=== PATIENT | male | born 2000 | race Caucasian/White ===

== ENCOUNTER 2023-01-28 19:48 | Emergency (ER) | payer MEDICAID ==
[~2023-01-28 19:48] MED LIST: ARIP2TAB3 PO
[2023-01-28] MEDS ORDERED: LORAZEPAM 0.5MG TABLET PO ONE (20:00)
== END 2023-01-28 20:56 | disposition home or self-care (01) ==
LOC: ER 19:48
DX: F41.9 Anxiety disorder, unspecified (principal)
CPT/HCPCS: 99283